=== PATIENT | female | born 1995 | race Caucasian/White ===

== ENCOUNTER 2020-07-16 01:46 | Emergency (ER) | payer OTHER ==
[~2020-07-16] VITALS: Ht 154.9 cm; Wt 66.7 kg
[2020-07-16 01:53] VITALS: BP 119/85
--- NOTE | 2020-07-16 01:55 | NUR ---
TO LOBBY A/W BED AMBULATORY
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
--- NOTE | 2020-07-16 02:10 | NUR ---
PT TAKEN TO BED #4
[2020-07-16] MEDS ORDERED: LIDOCAINE VISCOUS 2% 20 ML UDC PO ONE (02:15)
--- NOTE | 2020-07-16 03:00 | NUR ---
DR. MARTINEZ HAS REMOVED FB
[2020-07-16 03:25] VITALS: BP 119/85
--- NOTE | 2020-07-16 03:25 | NUR ---
Patient discharged with v/s stable. Written and verbal after care instructions given and explained. Patient alert, oriented and verbalized understanding of instructions. Ambulatory with steady gait. All questions addressed prior to discharge. ID band removed. Patient advised to follow up with PMD. Rx of CIPRODEX OTIC SUSPENSION given. Patient educated on indication of medication including possible reaction and side effects. Opportunity to ask questions provided and answered.
== END 2020-07-16 03:25 | disposition home or self-care (01) ==
LOC: MED 01:46
DX: T16.1XXA Foreign body in right ear, initial encounter (principal); X58.XXXA Exposure to other specified factors, initial encounter; Y93.9 Activity, unspecified; Y92.89 Other specified places as the place of occurrence of the external cause; Y99.8 Other external cause status
CPT/HCPCS: 69200; 99284

== ENCOUNTER 2020-08-24 03:05 | Emergency (ER) | payer OTHER ==
[~2020-08-24] VITALS: Ht 154.9 cm; Wt 64.0 kg
[2020-08-24 03:21] VITALS: BP 112/78
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
[2020-08-24] MEDS ORDERED: KETOROLAC 60 MG/2 ML VIAL IM ONE (03:50)
--- NOTE | 2020-08-24 03:59 | NUR ---
Dr. Condon examining patient.
--- NOTE | 2020-08-24 04:17 | NUR ---
X-Ray at bedside.
[2020-08-24] MEDS ORDERED: IBUP-2213 PO (04:38)
[2020-08-24] MEDS ORDERED: METH-1681 PO (04:38)
[2020-08-24 04:57] VITALS: BP 112/78
--- NOTE | 2020-08-24 04:58 | NUR ---
Patient discharged with v/s stable. Written and verbal after care instructions given and explained. Patient alert, oriented and verbalized understanding of instructions. Ambulatory with steady gait. All questions addressed prior to discharge. ID band removed. Patient advised to follow up with PMD. Rx of IBUPROFEN; METHOCARBAMOL given. Patient educated on indication of medication including possible reaction and side effects. Opportunity to ask questions provided and answered.
== END 2020-08-24 04:58 | disposition home or self-care (01) ==
LOC: MED 03:05
DX: S16.1XXA Strain of muscle, fascia and tendon at neck level, initial encounter (principal); V49.9XXA Car occupant (driver) (passenger) injured in unspecified traffic accident, initial encounter; Y93.89 Activity, other specified; Y92.89 Other specified places as the place of occurrence of the external cause; Y99.8 Other external cause status
CPT/HCPCS: 72040; 81025; 96372; 99283; J1885

== ENCOUNTER 2021-06-18 17:31 | Emergency (ER) | payer OTHER ==
[~2021-06-18] VITALS: Ht 154.9 cm; Wt 68.0 kg
[~2021-06-18 17:31] MED LIST: IBUP-2213 PO; METH-1681 PO
[2021-06-18 17:33] VITALS: BP 130/73
[2021-06-18] MEDS ORDERED: IBUP-2213 PO (18:12)
[2021-06-18] MEDS ORDERED: PHEN-1877 PO (18:12)
[2021-06-18] MEDS ORDERED: CEPH-588 PO (18:12)
[2021-06-18] MEDS ORDERED: ONDA-188 PO (18:12)
[2021-06-18] MEDS: cephALEXin 500 MG CAP PO ONE (18:18)
[2021-06-18] MEDS: ONDANSETRON 4 MG ODT PO ONE (18:18)
[2021-06-18 18:32] VITALS: BP 128/70
== END 2021-06-18 18:32 | disposition home or self-care (01) ==
LOC: MED 17:31
DX: N39.0 Urinary tract infection, site not specified (principal)
CPT/HCPCS: 81002; 81025; 87086; 99283; Q0162; 96372